=== PATIENT | male | born 1990 | race American Indian/Alaskan Native ===

== ENCOUNTER 2017-03-18 17:56 | Emergency (ER) | payer SELFPAY ==
[2017-03-18 18:08] VITALS: BP 113/61
[2017-03-18 18:36] LABS: Basophils % (Auto) 1.1 % (0.0-1.8); Eosinophils % (Auto) 1.1 % (0.0-4.3); Hemoglobin 15.7 gm/dl (11.8-15.2); Mean Corpuscular HGB Conc 33 % (32-34); Mean Corpuscular Hemoglobin 31 pg (28-32); Mean Corpuscular Volume 92 fl (84-94); Platelet Count 209 K/mm3 (140-440); Red Blood Count 5.12 M/mm3 (3.65-5.03); Red Cell Distribution Width 12.8 % (13.2-15.2); White Blood Count 9.5 K/mm3 (4.5-11.0)
[2017-03-18 18:46] LABS: Anion Gap 19 mmol/L; Blood Urea Nitrogen 13 mg/dL (9-20); Calcium 9.3 mg/dL (8.4-10.2); Carbon Dioxide 22 mmol/L (22-30); Chloride 100.1 mmol/L (98-107); Glucose 115 mg/dL (75-100); Potassium 3.7 mmol/L (3.6-5.0); Sodium 137 mmol/L (137-145)
--- NOTE | 2017-03-18 18:59 | Emergency Department Report ---
Entered by EVY STEIN, acting as scribe for ARIA RITCHIE PA. Chief Complaint: Psych Stated Complaint: SUICIDAL THOUGHTS Time Seen by Provider: 03/18/17 18:39 - HPI History of Present Illness: 26 y/o male with unknown past psychiatric treatment, presents to the ED c/o suicidal ideation with no plan of unknown onset. The patient states "I just don' t feel like myself anymore", "not feeling myself". Denies pain and homicidal ideation. No other complaints. - ROS Review of Systems: PSYCH: Positive for suicidal ideation without plan, negative for homicidal ideation. MS/Extremity: negative for pain. All other systems reviewed and negative. - Exam Vital Signs: Vital Signs 03/18/17 18:04 Temperature 98.1 F Pulse Rate 121 H Respiratory 20 Rate Blood Pressure 113/61 O2 Sat by Pulse 98 Oximetry Physical Exam: Constitutional: Non toxic appearing, NAD. Cardiovascular: Normal rate and rhythm with normal S1/S2 sounds. Respiratory: No respiratory distress. Lung sounds clear to auscultation bilaterally. Abdomen: Abdomen is non-distended, soft with no tenderness to palpation in all quadrants. MSE screening note: Focused history and physical exam performed. Due to findings the following was ordered: ED Medical Decision Making - Lab Data Result diagrams: 03/18/17 18:17 03/18/17 18:17 - Medical Decision Making Alert and oriented x3. Mental health protocol ordered. Patient to be assessed by ED doc No acute distress, patient is stable. ED Disposition for MSE Condition: Stable This documentation as recorded by the scribe,EVY STEIN,accurately reflects the service I personally performed and the decisions made by ,ARIA RITCHIE PA.
--- NOTE | 2017-03-24 11:22 | ED Elopement Review ---
ED Pt Elopement review - Results review Lab results: Laboratory Tests 03/18/17 03/18/17 03/18/17 18:17 18:17 18:17 WBC 9.5 RBC 5.12 H Hgb 15.7 H Hct 47.0 H MCV 92 MCH 31 MCHC 33 RDW 12.8 L Plt Count 209 Lymph % (Auto) 27.4 Camp % (Auto) 8.6 H Eos % (Auto) 1.1 Baso % (Auto) 1.1 Lymph # 2.6 Camp # 0.8 Eos # 0.1 Baso # 0.1 Seg Neutrophils % 61.8 Seg Neutrophils # 5.9 Sodium 137 Potassium 3.7 Chloride 100.1 Carbon Dioxide 22 Anion Gap 19 BUN 13 Creatinine 1.0 Estimated GFR > 60 BUN/Creatinine Ratio 13.00 Glucose 115 H Calcium 9.3 Salicylates Acetaminophen Plasma/Serum Alcohol < 0.01 03/18/17 03/18/17 18:17 18:17 WBC RBC Hgb Hct MCV MCH MCHC RDW Plt Count Lymph % (Auto) Camp % (Auto) Eos % (Auto) Baso % (Auto) Lymph # Camp # Eos # Baso # Seg Neutrophils % Seg Neutrophils # Sodium Potassium Chloride Carbon Dioxide Anion Gap BUN Creatinine Estimated GFR BUN/Creatinine Ratio Glucose Calcium Salicylates < 0.3 L Acetaminophen < 15.0 Plasma/Serum Alcohol - Call Back decision Pt Call Back Decision: Call pt to return to ED [facility]
== END 2017-03-19 07:00 | disposition left against medical advice (07) ==
LOC: ED 17:56
DX: R45.851 Suicidal ideations (principal); Z53.21 Procedure and treatment not carried out due to patient leaving prior to being seen by health care provider
CPT/HCPCS: 36415; 80048; 85025; G0480; 80320

== ENCOUNTER 2019-05-20 22:54 | Emergency (ER) | payer SELFPAY ==
[2019-05-20] MEDS ORDERED: IBUPROFEN PO ONE (23:42)
[2019-05-20] MEDS ORDERED: NORCO 5/325 PO ONE (23:42)
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
[2019-05-21 01:09] VITALS: BP 100/52
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
== END 2019-05-21 01:45 | disposition home or self-care (01) ==
LOC: ED 22:54
DX: S20.212A Contusion of left front wall of thorax, initial encounter (principal); S76.012A Strain of muscle, fascia and tendon of left hip, initial encounter; S80.212A Abrasion, left knee, initial encounter; F32.9 Major depressive disorder, single episode, unspecified; Z79.1 Long term (current) use of non-steroidal anti-inflammatories (NSAID); Z79.899 Other long term (current) drug therapy; V87.7XXA Person injured in collision between other specified motor vehicles (traffic), initial encounter; Y93.89 Activity, other specified; Y92.488 Other paved roadways as the place of occurrence of the external cause; Y99.8 Other external cause status
CPT/HCPCS: 72170; 99283

== ENCOUNTER 2019-07-22 18:31 | Emergency (ER) | payer SELFPAY ==
[2019-07-22 18:45] VITALS: BP 133/75
--- NOTE | 2019-07-22 19:09 | Emergency Department Report ---
Suture/Staple Removal - HPI Chief Complaint: Laceration/Recheck/Suture Stated Complaint: SUTURE REMOVAL Time Seen by Provider: 07/22/19 19:07 When Sutures or Nathen Placed: 5-7 Days Ago Wound Location: right upper lip ED Review of Systems ROS: Stated complaint: SUTURE REMOVAL Other details as noted in HPI Comment: All other systems reviewed and negative ED Past Medical Hx - Past Medical History Previous Medical History?: Yes Hx Psychiatric Treatment: Yes (Depression) - Surgical History Past Surgical History?: No - Social History Smoking Status: Never Smoker Substance Use Type: None - Medications Home Medications: Home Medications Medication Instructions Recorded Confirmed Last Taken Type Quetiapine Fumarate [Seroquel] 100 mg PO DAILY 06/11/16 06/11/16 Unknown History HYDROcodone/APAP 5-325 [[place] 1 each PO Q6HR PRN #10 tablet 05/21/19 Unknown Rx 5/325] Ibuprofen [Motrin 800 MG tab] 800 mg PO Q8HR PRN #14 tablet 05/21/19 Unknown Rx methOCARBAMOL [Robaxin TAB] 500 mg PO Q6H PRN #14 tablet 05/21/19 Unknown Rx Suture Removal Exam - Exam General: Vital signs noted. No distress. Alert and acting appropriately. Wound: No Pathologic Erythema, No Tenderness, No Drainage, No Pus, No Wound Dehiscence Other Systems: All other systems reviewed and are unremarkable. ED Course Vital Signs 07/22/19 18:44 Temperature 98.6 F Pulse Rate 111 H Respiratory 16 Rate Blood Pressure 133/75 O2 Sat by Pulse 95 Oximetry ED Recheck MDM - Core Measures Measure Exclusions: not indicated - Differential Diagnosis Suture/Staple Removal Critical care attestation.: If time is entered above; I have spent that time in minutes in the direct care of this critically ill patient, excluding procedure time. ED Disposition Clinical Impression: Visit for suture removal Disposition: DC-01 TO HOME OR SELFCARE Is pt being admited?: No Does the pt Need Aspirin: No Condition: Stable Instructions: Suture Removal (ED)
== END 2019-07-22 20:07 | disposition home or self-care (01) ==
LOC: ED 18:31
DX: S01.511D Laceration without foreign body of lip, subsequent encounter (principal); F32.9 Major depressive disorder, single episode, unspecified; Z79.899 Other long term (current) drug therapy; W26.8XXD Contact with other sharp object(s), not elsewhere classified, subsequent encounter